=== PATIENT | male | born 1935 | race Caucasian/White ===

== ENCOUNTER 2017-02-14 05:20 | Inpatient (IN) | payer OTHER, MEDICARE ==
[~2017-02-14] VITALS: Ht 167.6 cm; Wt 94.3 kg
--- NOTE | 2017-02-14 05:39 | ED GENERAL ADULT ---
History of Present Illness General Chief Complaint: General Adult Stated Complaint: "PER EMS FOUND UNRESPONSIVE" Source: patient Exam Limitations: no limitations Vital Signs & Intake/Output Vital Signs & Intake/Output Vital Signs Date Time Temp Pulse Resp B/P B/P Pulse O2 O2 Flow FiO2 Mean Ox Delivery Rate 02/14 1121 98.4 63 18 111/57 95 BIPAP 35% 02/14 1115 97 02/14 0948 98.4 63 18 134/43 96 BIPAP 35% 02/14 0914 67 97 02/14 0830 99.0 70 16 93/45 95 Nasal 3.5L Cannula 02/14 0621 101.9 02/14 0541 94 Nasal 4.0L Cannula 02/14 0536 100.6 86 14 160/100 96 Room Air 02/14/17 5:30 AM 82-year-old man presents to the emergency department for altered mental status. According to the patient's they were staying at a hotel from [place] he has a history of chronic back pain and tends to overdo his pain medication. He also has a history of COPD. He was lethargic and had a slow respiratory rate. This was called and Narcan was given. Now he is awake and alert, he had bilateral expiratory wheezes and albuterol was given in the field. The onset of the symptoms was abrupt, the duration was just this evening the severity was significant as his symptoms required him to come to the emergency department for care. (SANTA MARTINEZ DO) Allergies Coded Allergies: No Known Allergies (02/14/17) Triage Nurses Notes Reviewed? yes HPI: IVF, CXR, HEAD CT, EKG (SANTA MARTINEZ DO) Past History Travel History Traveled to [place] past 21 day No Medical History Any Pertinent Medical History? see below for history Respiratory: COPD Surgical History Surgical History: non-contributory Family History Hx Contributory? No (SANTA MARTINEZ DO) Review of Systems Review of Systems Constitutional: Reports: no symptoms. EENTM: Reports: no symptoms. Respiratory: Reports: cough, short of breath. Cardiovascular: Denies: chest pain. GI: Denies: abdominal pain. Genitourinary: Reports: no symptoms. Musculoskeletal: Reports: no symptoms. Skin: Reports: no symptoms. Neurological/Psychological: Reports: confusion. Hematologic/Endocrine: Reports: no symptoms. Immunologic/Allergic: Reports: no symptoms. (SANTA MARTINEZ DO) Physical Exam Physical Exam General Appearance: alert, awake, anxious, moderate distress Head: atraumatic, normal appearance Eyes: Bilateral: normal appearance, PERRL, EOMI. Ears, Nose, Throat: normal pharynx, normal ENT inspection Neck: normal inspection, supple Respiratory: normal breath sounds, chest non-tender, accessory muscle use, rhonchi Cardiovascular: regular rate/rhythm Peripheral Pulses: 4+ radial (R), 4+ radial (L) Gastrointestinal: non-tender Back: decreased range of motion Extremities: pedal edema Neurologic/Psych: no motor/sensory deficits, alert Skin: intact, normal color, warm/dry Core Measures ACS in differential dx? No CVA/TIA Diagnosis: No Severe Sepsis Present: No Septic Shock Present: No (SANTA MARTINEZ DO) Progress Differential Diagnoses I considered the following diagnoses in my evaluation of the patient: Pneumonia , COPD, CVA, TIA, aspiration pneumonia, opiate overdose, alcohol intoxication, polydrug overdose Plan of Care: Orders Procedure Date/time Status ARTERIAL BLOOD GAS (GEN) 02/14 1046 Active Admit to inpatient 02/14 1013 Active BIPAP 02/14 0905 Complete LACTIC ACID 02/14 0842 Complete ARTERIAL BLOOD GAS (GEN) 02/14 0816 Complete URINALYSIS 02/14 0816 Complete EKG 02/14 0603 Active LOWER RESPIRATORY CULTURE 02/14 0550 Active BLOOD CULTURE 02/14 0542 Active TROPONIN LEVEL 02/14 0542 Complete LACTIC ACID 02/14 0542 Complete COMPREHENSIVE METABOLIC PANEL 02/14 0542 Complete CBC WITHOUT DIFFERENTIAL 02/14 0542 Complete Current Medications Sig/Caleb Start time Last Medication Dose Stop Time Status Admin Naloxone HCl 0.8 MG ONCE ONE 02/14 1145 AC 02/14 (Narcan) 02/14 1146 1137 Naloxone HCl 20 MG ONCE ONE 02/14 0600 CAN (Narcan Drip High 02/14 0601 Dose) Sodium Chloride 500 ML (Normal Saline 0.9%) Laboratory Tests 02/14/17 1115: pH 7.28 *L, pCO2 59 H, pO2 53 L, HCO3 27, ABG O2 Sat (Measured) 85.0 L, P-50 (Temp Corrected) YES, Carboxyhemoglobin 0.3 L, O2 Concentration % 35%, Temperature 98.4, Respiration Rate 26, O2 Delivery Method BIPAP, Vent Mode ST, Expiratory Pressure 4, Inspiratory Pressure 16, Phlebotomy Draw Site RIGHT RADIAL 02/14/17 0909: Urine Color YEL, Urine Clarity CLEAR, Urine pH 5.5, Ur Specific Dairy 1.020, Urine Protein NEG, Urine Ketones NEG, Urine Nitrite NEG, Urine Bilirubin NEG, Urine Urobilinogen 0.2, Ur Leukocyte Esterase NEG, Ur Microscopic EXAM NOT REQUIRED, Urine Hemoglobin NEG, Urine Glucose NEG 02/14/17 0842: Lactic Acid 1.9 02/14/17 0840: pH 7.23 *L, pCO2 64 *H, pO2 92, HCO3 25, ABG O2 Sat (Measured) 95.0 L, P-50 ( Temp Corrected) YES, Carboxyhemoglobin 0.3 L, O2 Concentration % 4L, Temperature 101.9 H, O2 Delivery Method NC, Phlebotomy Draw Site RIGHT RADIAL 02/14/17 0840: pH Pending, pCO2 Pending, pO2 Pending, HCO3 Pending, ABG O2 Sat (Measured) Pending, P-50 (Temp Corrected) Pending, Carboxyhemoglobin Pending, O2 Concentration % Pending, Temperature Pending, O2 Delivery Method Pending, Phlebotomy Draw Site Pending 02/14/17 0549: Anion Gap 8, Estimated GFR 53 L, BUN/Creatinine Ratio 20.0, Glucose 113 H, Lactic Acid 2.2 H, Calcium 8.5, Total Bilirubin 0.5, AST 45, ALT 47, Alkaline Phosphatase 88, Troponin I 0.02, Total Protein 6.9, Albumin 3.9, Globulin 3.0, Albumin/Globulin Ratio 1.3, CBC w Diff NO MAN DIFF REQ, RBC 3.75 L, MCV 93.8, MCH 30.2, RDW 15.1 H, MPV 11.1 H, Gran % 65.3, Lymphocytes % 24.8, Monocytes % 7.4, Eosinophils % 2.1, Basophils % 0.4, Absolute Granulocytes 5.8, Absolute Lymphocytes 2.2, Absolute Monocytes 0.7 H, Absolute Eosinophils 0.2, Absolute Basophils 0, PUBS MCHC 32.2 L Microbiology 02/14 06 LOWER RESP: Respiratory Culture - RES 02/14 06 LOWER RESP: Gram Stain - RES 02/14 06 BLOOD: Blood Culture - RECD 07/16 0550 BLOOD: Blood Culture - RECD 02/14/17 The patient was placed on oxygen and a case monitor. Labs were sent. (SANTA MARTINEZ DO) Initial ED EKG: PENDING (SANTA MARTINEZ DO) Diagnostic Imaging: Discussed w/RAD: Radiology Read, CT Scan. Radiology Impression: PATIENT: CHAO TURNER PRESENT AGE: 82 PATIENT ACCOUNT NO: [id number] : 37 LOCATION: ER ORDERING PHYSICIAN: SANTA MARTINEZ DO SERVICE DATE: 02/14/17 EXAM TYPE: CAT - CT HEAD WO IV CONTRAST EXAMINATION: CT HEAD WITHOUT CONTRAST CLINICAL INFORMATION: Cerebral vascular accident COMPARISON: None TECHNIQUE: Contiguous axial imaging was performed from the skull base to vertex without intravenous administration of contrast. DLP: 618.47 mGy-cm FINDINGS: There is no evidence of acute intracranial hemorrhage or territorial infarction. No abnormal mass effect or midline shift is seen. Gilliland to white matter differentiation is well preserved. No extra-axial fluid collections are identified. The ventricles are normal in size. Mild cerebral volume loss is compatible with age. Mild low- attenuation is seen in the periventricular white matter extending into the centrum semiovale in keeping with mild small vessel ischemic change. Mild calcifications are seen in the internal carotid arteries at the carotid siphon. The osseous structures and soft tissues are normal. The mastoid air cells and visualized portions of the paranasal sinuses are well aerated. Soft tissue density in the right and left naris may reflect nasal polyps, correlate clinically. IMPRESSION: No acute intracranial pathology. Mild small vessel ischemic change. DICTATED BY: CASIE KELLEY MD DATE/TIME DICTATED:02/14/17709 LINK CUTTER:LINDA DATE/TIME TRANSCRIBED:02/14/17709 CONFIDENTIAL, DO NOT COPY WITHOUT APPROPRIATE AUTHORIZATION. <Electronically signed in Other Vendor System> SIGNED BY: CASIE KELLEY MD 02/14/17718 CXR Impression: PATIENT: CHAO TURNER PRESENT AGE: 82 PATIENT ACCOUNT NO: [id number] : 37 LOCATION: [facility] ORDERING PHYSICIAN: SANTA MARTINEZ DO SERVICE DATE: 02/14/17 EXAM TYPE: RAD - XRY- PORTABLE CHEST XRAY EXAMINATION: XR PORTABLE CHEST CLINICAL INFORMATION: Altered mental status, shortness of breath, rule out aspiration COMPARISON: Chest x-ray report [facility] 11/07/2014. TECHNIQUE: Portable AP 90 degrees upright view of the chest was obtained. FINDINGS: A nerve stimulator device overlies the mediastinum. The cardiac silhouette is mildly enlarged. The lung volumes are decreased with minimal patchy left retrocardiac opacity and trace left pleural effusion. There is vascular congestion without interstitial edema. IMPRESSION: The cardiac silhouette is mildly enlarged with vascular congestion. No interstitial edema. Minimal patchy opacity at the left base with a trace pleural effusion is nonspecific for atelectasis, secretions/aspiration or early infection. DICTATED BY: CASIE KELLEY MD DATE/TIME DICTATED:02/14/17714 LINK CUTTER:LINDA DATE/TIME TRANSCRIBED:02/14/17714 CONFIDENTIAL, DO NOT COPY WITHOUT APPROPRIATE AUTHORIZATION. <Electronically signed in Other Vendor System> SIGNED BY: CASIE KELLEY MD 02/14/17 0721 Comments: 02/14/2017 8:14:21 AM patient signed out to me by Dr. Martinez at shift chemical cell changer. 02/14/2017 8:51:15 AM 7.23/64/92/25 95% BiPAP to be initiated, respiratory therapist aware. 02/14/2017 11:31:14 AM REPEAT 7.28/59/53/27 85% (PT DIPPED TO MID 80'S THEN IMPROVED AGAIN). Narcan ordered. Dr. Solomon updated. Patient to be admitted to telemetry. (LEIGHA SULLIVAN,SANTA Graves) Departure Departure Disposition: STILL A PATIENT Condition: Stable Departure Forms: Customer Survey General Discharge Information Comments 02/14/17 7 am The patient spiked a fever. EKG shows left bundle-branch block. IV Tylenol and antibiotics have been given The patient was signed out to Dr. Terry at 7 AM workup is pending. (SANTA MARTINEZ DO) Departure Clinical Impression Primary Impression: Hypercapnic respiratory failure Qualifiers: Chronicity: acute Qualified Code: J96.02 - Acute respiratory failure with hypercapnia Secondary Impressions: Anemia Qualifiers: Anemia type: unspecified type Qualified Code: D64.9 - Anemia, unspecified Opiate overdose Renal insufficiency Admission Note Spoke With: JENNIFER SULLIVAN,[place] Documentation of Exam: Documentation of any treatments & extenuating circumstances including Concerns Regarding Discharge (functional status, medication knowledge or non-compliance, living conditions, etc.) that warrant an admission rather than observation: Patient currently has hypercapnic respiratory failure complicated by chronic narcotic use secondary to chronic back pain. The patient is at high risk of respiratory failure and mortality. He now requires close clinical monitoring with continuous pulse oximetry and BiPAP TO augment ventilation and oxygenation. The patient's hypercapnia has made him lethargic, and this disqualifies him as a candidate for outpatient management. He would not be able to comply with outpatient treatment and would almost certainly return in worse clinical condition. His medications should be reevaluated and adjusted given his propensity to hypercapnia. Pulmonary consultation should be considered. I feel he'll require a multiple day hospitalization given his age and his comorbidities. (LEIHGA SULLIVAN,SANTA Graves) Critical Care Note Critical Care Note Critical Care Time: 30-74 min (SANTA MARTINEZ DO)
--- NOTE | 2017-02-14 05:41 | NUR ---
82YO MALE TO RM 6 VIA AMB [place] WITH DECREASED LOC. REPORTS PT SNARLING, MOANING IN HIS SLEEP AND SHE WAS UNABLE TO WAKE HIM. SHE ALSO STATES "PT IS ON PAIN MEDS FOR CHRONIC BACK PAIN AND HAS TAKEN TOO MANY IN THE PAST AND NEEDED MEDICINE BY APPLE TURNER TO WAKE HIM UP"
--- NOTE | 2017-02-14 05:42 | NUR ---
DR MARTINEZ AT BEDSIDE.
--- NOTE | 2017-02-14 05:45 | NUR ---
PLACED ON 4L NASAL O2 RA SAT AFTER RESP TX = 88 RR DECREASED. ONLY AROUSABLE TO LOUD VERBAL STIM. DR MARTINEZ AWARE--NARCAN 0.4 GIVEN IV
--- NOTE | 2017-02-14 05:57 | NUR ---
LABS SENT (1BLUE,1GRAY,1LAV,1SST)
--- NOTE | 2017-02-14 06:04 | NUR ---
BLOOD CULTURES OBTAINED VIA BUTTERFLY FROM 2 DIFFERENT SITES AND SENT TO LAB BY THIS RN.
[2017-02-14 06:08] LABS: ABSOLUTE BASOPHIL COUNT 0 /CUMM (0.0-0.2); ABSOLUTE EOSINOPHIL COUNT 0.2 /CUMM (0.0-0.7); ABSOLUTE GRANULOCYTE CT 5.8 /CUMM (1.4-6.5); ABSOLUTE LYMPH COUNT 2.2 /CUMM (1.2-3.4); ABSOLUTE MONOCYTE COUNT 0.7 /CUMM (0.10-0.60); BASOPHIL % 0.4 % (0.0-2.0); EOSINOPHIL % 2.1 % (0-5); GRANULOCYTE % 65.3 % (42.2-75.2); HEMATOCRIT 35.2 % (42-52); MEAN CORPUSCULAR HGB 30.2 PG (27.0-31.0); MEAN CORPUSCULAR HGB CONC 32.2 G/DL (33.0-37.0); MEAN CORPUSCULAR VOLUME 93.8 FL (80.0-94.0); MEAN PLATELET VOLUME 11.1 FL (7.4-10.4); PLATELET COUNT 167 /CUMM (130-400); RBC DISTRIBUTION WIDTH 15.1 % (11.5-14.5); RED BLOOD CELL CT 3.75 /CUMM (4.70-6.10); WHITE BLOOD CELL COUNT 8.9 /CUMM (4.8-10.8)
--- NOTE | 2017-02-14 06:23 | NUR ---
T = 101.9T DR MARTINEZ AWARE IV ADITYA MARTINES
--- NOTE | 2017-02-14 06:25 | NUR ---
TO CT VIA STRETCHER
--- NOTE | 2017-02-14 06:28 | NUR ---
CRITICAL TEST RESULTS [id number] CHAO TURNER 82 M TESTS AND RESULTS: LACTIC 2.2 Results received and read back by: INDY JOHNSON Results received date and time: 02/14/17 0628 The following provider was notified of the results, and read the results back: Notified date and time: 02/14/17 at 0628
--- NOTE | 2017-02-14 06:56 | NUR ---
RETD FROM CT AND XR
--- NOTE | 2017-02-14 07:15 | NUR ---
ASSUMED CARE OF PT AT THIS TIME. PT SLEEPING ON STRETCHER, REG RESP RATE NOTED. WILL CTM
--- NOTE | 2017-02-14 07:19 | CT SCAN REPORT ---
EXAMINATION: CT HEAD WITHOUT CONTRAST CLINICAL INFORMATION: Cerebral vascular accident COMPARISON: None TECHNIQUE: Contiguous axial imaging was performed from the skull base to vertex without intravenous administration of contrast. DLP: 618.47 mGy-cm FINDINGS: There is no evidence of acute intracranial hemorrhage or territorial infarction. No abnormal mass effect or midline shift is seen. Gilliland to white matter differentiation is well preserved. No extra-axial fluid collections are identified. The ventricles are normal in size. Mild cerebral volume loss is compatible with age. Mild low-attenuation is seen in the periventricular white matter extending into the centrum semiovale in keeping with mild small vessel ischemic change. Mild calcifications are seen in the internal carotid arteries at the carotid siphon. The osseous structures and soft tissues are normal. The mastoid air cells and visualized portions of the paranasal sinuses are well aerated. Soft tissue density in the right and left naris may reflect nasal polyps, correlate clinically. IMPRESSION: No acute intracranial pathology. Mild small vessel ischemic change.
--- NOTE | 2017-02-14 07:21 | RADIOLOGY REPORT ---
EXAMINATION: XR PORTABLE CHEST CLINICAL INFORMATION: Altered mental status, shortness of breath, rule out aspiration COMPARISON: Chest x-ray report [facility] 11/07/2014. TECHNIQUE: Portable AP 90 degrees upright view of the chest was obtained. FINDINGS: A nerve stimulator device overlies the mediastinum. The cardiac silhouette is mildly enlarged. The lung volumes are decreased with minimal patchy left retrocardiac opacity and trace left pleural effusion. There is vascular congestion without interstitial edema. IMPRESSION: The cardiac silhouette is mildly enlarged with vascular congestion. No interstitial edema. Minimal patchy opacity at the left base with a trace pleural effusion is nonspecific for atelectasis, secretions/aspiration or early infection.
--- NOTE | 2017-02-14 08:01 | NUR ---
PT HAS 2 IV'S PLACED BY EMS THIS AM AROUND 0600AM. (#18 TO L HAND & #18 TO R HAND) PT REFUISNG ANOTHER IV LINE TO BE STARTED AT THIS TIME. BOTH IV'S FLUSHED AND PATENT.
--- NOTE | 2017-02-14 08:39 | NUR ---
PT SLEEPY AT THIS TIME BUT EASILY AROUSABLE. 500CC BOLUS INFUSING PER ORDER, RESP AT BEDSIDE FOR ABG. REMAINS AT BEDSIDE.
--- NOTE | 2017-02-14 08:41 | NUR ---
PT REQUESTING TO TRY TO VOID IN [facility] FOR SAMPLE. URINAL PLACED BETWEEN LEGS AT THIS TIME PER PT REQUEST.
--- NOTE | 2017-02-14 08:44 | NUR ---
REPEAT LACTIC ACID DRAWN AND SENT TO LAB BY THIS MST
--- NOTE | 2017-02-14 09:16 | NUR ---
PT UNABLE TO GIVE URINE SAMPLE. PT STRAIGHT CATH'D AT THIS TIME FOR SPECIMEN. OUTPUT 600CC CLEAR YELLOW URINE, SPECIMEN SENT TO LAB. PT REMAINS SLEEPY BUT EASILY AROUSABLE. PT PLACED ON BIPAP AT THIS TIME BY RESP THERAPIST.
--- NOTE | 2017-02-14 09:48 | NUR ---
PT REMAINS ON BIPAP AT THIS TIME, SATS 94-96%. REMAINS NSR ON MONITOR. REMAINS AT BEDSIDE, PT AND AWARE OF ADMISSION PLAN. PT REMAINS DROWSY AT THIS TIME.
--- NOTE | 2017-02-14 10:18 | NUR ---
PT REPOSTIONED IN BED AT THIS TIME. AWARE WAITING ON BED ASSISGNEMT.
--- NOTE | 2017-02-14 11:11 | NUR ---
RESP AT BEDSIDE FOR REPEAT ABG
--- NOTE | 2017-02-14 11:38 | NUR ---
PT MEEDICATED WITH IV NARCAN PER ORDER AT THIS TIME. PT REMAINS DROWSY BUT EASILY AROUSABLE.
--- NOTE | 2017-02-14 11:51 | NUR ---
PT REPOSTIONED IN BED AT THIS TIME. REMAINS ON BIPAP, PT MORE AWAKE AFTER NARCAN ADMINISTRATION BUT REMAINS DROWSY
--- NOTE | 2017-02-14 12:08 | NUR ---
HOUSE STAFF AT BEDSIDE FOR EVAL AT THIS TIME
--- NOTE | 2017-02-14 12:24 | History & Physical ---
CASSANDRA STALEY 02/14/17 1218: General Information and HPI MD Statement: I have seen and personally examined CHAO TURNER and documented this H&P. The patient is a 82 year old M who presented with a patient stated chief complaint of [acute hypoxic respiratory failure]. Source of Information: old records Exam Limitations: unable to give history, clinical condition History of Present Illness: Patient is a 82-year-old male with past medical history of COPD, chronic back pain, hypertension, gout who was brought in the ED today for altered mental status. Most of the history is obtained from the ER record. I tried to contact patient' s multiple times but received no response. As per the records, patient's and his was staying at a hotel in [place]. He has history of chronic back pain and apparently overdid his pain medications this morning. He was lethargic and had a slow respiratory rate. This prompted his to call EMS who gave the patient Narcan with improvement of his mentation. On arriving in the ED, the patient was awake and alert however had expiratory wheezing. He was given 1 dose of IV ceftriaxone and azithromycin, Narcan(0.4 mg and 0.8 mg) and TRC nebs. Patient has never been in the hospital before and no records are available in the computer. Vitals at admission temperature 100.6, pulse 86, respiration 14, blood pressure 160/100 Pertinent labs showed H&H of 11.3 /35.2, no white count, creatinine 1.3(baseline unknown), lactic acidosis of 2.2(improved to 1.9 with IV fluid), normal LFTs, troponin 0.02, benign UA, U tox not done AB:51 AM 7.23/64/92/25 95% BiPAP was initiated 11:31 AM REPEAT 7.28/59/53/27 85% (PT DIPPED TO MID 80'S THEN IMPROVED AGAIN) Chest x-ray: Mild patchy opacity in the left base with trace pleural effusion? Aspiration/atelectasis Enlarged large cardiac silhouette with vascular congestion Head CT negative for any acute changes Allergies/Medications Allergies: Coded Allergies: No Known Allergies (02/14/17) Past History Travel History Traveled to [place] past 21 day No Medical History Cardiovascular: hypertension, hyperlipidemia Respiratory: COPD Musculoskeletal: disk herniation Endocrine: diabetes Surgical History Surgical History: non-contributory Review of Systems Review of Systems Constitutional: Reports: malaise, weakness. EENTM: Reports: no symptoms. Cardiovascular: Reports: no symptoms. Respiratory: Reports: short of breath, wheezing. GI: Reports: no symptoms. Genitourinary: Reports: no symptoms. Exam & Diagnostic Data Last 24 Hrs of Vital Signs/I&O Vital Signs Date Time Temp Pulse Resp B/P B/P Pulse O2 O2 Flow FiO2 Mean Ox Delivery Rate 02/14 1150 64 150/65 02/14 1121 98.4 63 18 111/57 95 BIPAP 35% 02/14 1115 97 02/14 0948 98.4 63 18 134/43 96 BIPAP 35% 02/14 0914 67 97 02/14 0830 99.0 70 16 93/45 95 Nasal 3.5L Cannula 02/14 0621 101.9 02/14 0541 94 Nasal 4.0L Cannula 02/14 0536 100.6 86 14 160/100 96 Room Air Intake & Output 02/14 1600 02/14 0800 02/14 0000 Intake Total 500 Output Total 600 Balance -100 Intake, IV 500 Output, Urine 600 Patient 113.398 kg Weight Physical Exam General Appearance DROWSY ON BIPAP Skin No Significant Lesion Skin Temp/Moisture Exam: Warm/Dry Sepsis Skin Exam (color): Normal for Ethnicity HEENT Atraumatic, PERRLA, BIPAP Neck No JVD Lymphatic Cervical nl Cardiovascular Regular Rate, Normal S1, Normal S2, SYSTOLIC MURMUR Lungs BILATERAL WHEEZES Abdomen Normal Bowel Sounds, Soft Extremities No Clubbing, No Cyanosis, No Edema Vascular Normal Pulses Last 24 Hrs of Labs/Dhruv: Laboratory Tests 02/14/17 1115: pH 7.28 *L, pCO2 59 H, pO2 53 L, HCO3 27, ABG O2 Sat (Measured) 85.0 L, P-50 (Temp Corrected) YES, Carboxyhemoglobin 0.3 L, O2 Concentration % 35%, Temperature 98.4, Respiration Rate 26, O2 Delivery Method BIPAP, Vent Mode ST, Expiratory Pressure 4, Inspiratory Pressure 16, Phlebotomy Draw Site RIGHT RADIAL 02/14/17 0909: Urine Color YEL, Urine Clarity CLEAR, Urine pH 5.5, Ur Specific [place] 1.020, Urine Protein NEG, Urine Ketones NEG, Urine Nitrite NEG, Urine Bilirubin NEG, Urine Urobilinogen 0.2, Ur Leukocyte Esterase NEG, Ur Microscopic EXAM NOT REQUIRED, Urine Hemoglobin NEG, Urine Glucose NEG 02/14/17 0842: Lactic Acid 1.9 02/14/17 0840: pH 7.23 *L, pCO2 64 *H, pO2 92, HCO3 25, ABG O2 Sat (Measured) 95.0 L, P-50 ( Temp Corrected) YES, Carboxyhemoglobin 0.3 L, O2 Concentration % 4L, Temperature 101.9 H, O2 Delivery Method NC, Phlebotomy Draw Site RIGHT RADIAL 02/14/17 0840: pH Pending, pCO2 Pending, pO2 Pending, HCO3 Pending, ABG O2 Sat (Measured) Pending, P-50 (Temp Corrected) Pending, Carboxyhemoglobin Pending, O2 Concentration % Pending, Temperature Pending, O2 Delivery Method Pending, Phlebotomy Draw Site Pending 02/14/17 0549: Anion Gap 8, Estimated GFR 53 L, BUN/Creatinine Ratio 20.0, Glucose 113 H, Lactic Acid 2.2 H, Calcium 8.5, Total Bilirubin 0.5, AST 45, ALT 47, Alkaline Phosphatase 88, Troponin I 0.02, Total Protein 6.9, Albumin 3.9, Globulin 3.0, Albumin/Globulin Ratio 1.3, CBC w Diff NO MAN DIFF REQ, RBC 3.75 L, MCV 93.8, MCH 30.2, RDW 15.1 H, MPV 11.1 H, Gran % 65.3, Lymphocytes % 24.8, Monocytes % 7.4, Eosinophils % 2.1, Basophils % 0.4, Absolute Granulocytes 5.8, Absolute Lymphocytes 2.2, Absolute Monocytes 0.7 H, Absolute Eosinophils 0.2, Absolute Basophils 0, PUBS MCHC 32.2 L Microbiology 02/14 0605 LOWER RESP: Respiratory Culture - RES 02/14 605 LOWER RESP: Gram Stain - RES 02/14 06 BLOOD: Blood Culture - RECD 02/14 05 BLOOD: Blood Culture - RECD Assessment/Plan Assessment: Patient is a 82-year-old male with past medical history of COPD, chronic back pain, hypertension, gout who was brought in the ED today for altered mental status. Vitals at admission temperature 100.6, pulse 86, respiration 14, blood pressure 160/100 Pertinent labs showed H&H of 11.3 /35.2, no white count, creatinine 1.3(baseline unknown), lactic acidosis of 2.2(improved to 1.9 with IV fluid), normal LFTs, troponin 0.02, benign UA, U tox not done EKG : Afib, LBBB( new?, no previous ekg for comparison) AB:51 AM 7.23/64/92/25 95% BiPAP was initiated 11:31 AM REPEAT 7.28/59/53/27 85% (PT DIPPED TO MID 80'S THEN IMPROVED AGAIN) Chest x-ray: Mild patchy opacity in the left base with trace pleural effusion? Aspiration/atelectasis Enlarged large cardiac silhouette with vascular congestion Head CT negative for any acute changes Assessment and plan #1 Acute hypoxic hypercarbic respiratory failure likely secondary to COPD exacerbation and opiate overdose . Some evidence of pulmonary edema on chest x -ray. Was administered Narcan in ED -Admit patient to telemetry -BiPAP as needed. Maintain oxygen saturations above 92% -TRC nebs [id number] -IV salmeterol 40 every 8 hours -Repeat ABG later today -Strict ins and outs and will check proBNP level -We will hold off Lasix for now -Received IV ceftriaxone and azithromycin in the ED. We will continue Unasyn questionable aspiration pneumonia -Pancultures ordered -Pulmonary consult in am -Try and get records from patient's previous pulmonary docor. #2 ?Aspiration pneumonia -Presence of left lower lobe opacity in the chest x-ray -Patient received IV cephalexin and azithromycin in the ED. We will continue IV Unasyn for now -Nothing by mouth pending swallow eval -Pancultures -Gentle hydration with IV normal saline at 50 mL 1 bag #3 Acute on chronic CHF: Evidence of vascular congestion on chest x-ray. No previous echocardiogram on file -3 sets of troponin and EKG to rule out ACS -ProBNP added to the previous labs -Echocardiogram will be ordered -Strict ins and outs and weight checks -Cardiology consult in a.m. #4 Opiate overdose: Received Narcan in field and in the ER -Nothing by mouth for now until formal swallow eval -Avoid opiates -U tox ordered #5 Acute kidney injury: No baseline creatinine available -Gentle hydration with IV normal saline at 50 mL an hour into 1 bag -Repeat BeP in a.m. -Avoid nephrotoxins -Try to obtain records from patient PCP #6 hypertension and hyperlipidemia -We will hold home dose of losartan because of SID -We will try and get med list confirmed in a.m. Nothing by mouth to a formal swallow eval DVT prophylaxis subcutaneous heparin Full code(please confirm CODE STATUS with in a.m.) try to call her several times with no response. As Ranked By This Provider Problem List: 1. Hypercapnic respiratory failure Qualifiers Chronicity: acute Qualified Code: J96.02 - Acute respiratory failure with hypercapnia 2. Opiate overdose 3. Renal insufficiency 4. Anemia Qualifiers Anemia type: unspecified type Qualified Code: D64.9 - Anemia, unspecified Core Measures/Miscellaneous Acute Coronary Syndrome ACS Diagnosis: No Cerebrovascular Accident CVA/TIA Diagnosis: No Congestive Heart Failure CHF Diagnosis: No VTE (View Protocol) VTE Risk Factors: Age > 40, Obesity [facility] prophylaxis d/t: No contraindications No VTE Pharm Prophylaxis d/t: No contraindications VTE Diagnosis: No VTE Type: NONE VTE Confirmed by (Test): NONE Sepsis (View Protocol) Severe Sepsis Present: No Septic Shock Septic Shock Present: No Miscellaneous Documentation Attending Case Discussed With: LAMONT RODRIGUEZ MD Primary Care Physician: GRETCHEN BOLDEN MD Patient sees these Specialists NONE Level of Patient Care: Telemetry LAMONT RODRIGUEZ MD 02/14/17 1637: Attending MD Review Statement Attending Statement Attending Statement: examined this patient, discuss w/resident/PA/WELDING MACHINE OPERATOR THERMIT, agreed w/resident/PA/WELDING MACHINE OPERATOR THERMIT, reviewed EMR data (avail), discussed with nursing, reviewed images, amended to note Attending Assessment/Plan: 82 yo M with pmh sig for COPD, chronic back pain, hypertension, gout, p/w unresponsiveness. Hx is limited. Apparently patient might have overdosed on his narcotics according to ER physician,s report. He was brought in by ambulance from a hotel in [facility] as he was found unresponsive. By the patient we saw the patient, he was wearing BIPAP and was still drowsy and not able to provide much hx. patient was hypercarbic and hypoxic. He required BiPAP. Repeat ABG did show some hypoxia. When I asked the patient he denied any chest pain. His EKG did show some left bundle branch and Dr. Terry from ER was able to give EKG from [facility] and he reported that this EKG is not changed from the previous one. Vital Signs Date Time Temp Pulse Resp B/P B/P Pulse O2 O2 Flow FiO2 Mean Ox Delivery Rate 02/14 1603 92 Nasal 3.0L Cannula 02/14 1556 98.2 69 20 160/78 98 BIPAP 4.0L 02/14 1500 97 02/14 1303 98.6 62 18 128/60 94 BIPAP 35% 02/14 1150 64 150/65 02/14 1121 98.4 63 18 111/57 95 BIPAP 35% 02/14 1115 97 02/14 0948 98.4 63 18 134/43 96 BIPAP 35% 02/14 0914 67 97 02/14 0830 99.0 70 16 93/45 95 Nasal 3.5L Cannula 02/14 0621 101.9 02/14 0541 94 Nasal 4.0L Cannula 02/14 0536 100.6 86 14 160/100 96 Room Air on exam; semi drwosy, wearing BIPAP. cv; s1,s2, rrr resp; exp wheeze. abd; soft, nt, bs+ ext; no edema. Laboratory Tests 02/14 02/14 02/14 02/14 1450 1300 1247 1115 Blood Gas pH (7.35 - 7.45 PH) 7.33 L 7.28 *L pCO2 (35 - 45 TORR) 50 H 59 H pO2 (80 - 100 TORR) 65 L 53 L HCO3 (21 - 28 MEQ/L) 25 27 ABG O2 Sat (Measured) (>96.0 %) 92.0 L 85.0 L P-50 (Temp Corrected) NO YES Carboxyhemoglobin (1.5 - 5.0 %) 0.6 L 0.3 L O2 Concentration % 35% 35% Temperature (97.0 - 100.0 FARH) 98.6 98.4 Respiration Rate (BPM) 20 26 O2 Delivery Method BIPAP BIPAP Vent Mode ST ST Expiratory Pressure (CM H2O P) 26 4 Inspiratory Pressure (CM H2O P) 4 16 Chemistry Troponin I (<0.11 ng/ml) 0.02 Miscellaneous Phlebotomy Draw Site RIGHT RADIAL RIGHT RADIAL Toxicology Methadone Screen Cancelled Barbiturate Screen Cancelled Ur Phencyclidine Scrn Cancelled Amphetamines Screen Cancelled U Benzodiazepines Scrn Cancelled Urine Cocaine Screen Cancelled Urine Cannabis Screen Cancelled 02/14 02/14 02/14 0909 0842 0840 Blood Gas pH (7.35 - 7.45 PH) 7.23 *L pCO2 (35 - 45 TORR) 64 *H pO2 (80 - 100 TORR) 92 HCO3 (21 - 28 MEQ/L) 25 ABG O2 Sat (Measured) (>96.0 %) 95.0 L P-50 (Temp Corrected) YES Carboxyhemoglobin (1.5 - 5.0 %) 0.3 L O2 Concentration % 4L Temperature (97.0 - 100.0 FARH) 101.9 H O2 Delivery Method NC Chemistry Lactic Acid (0.7 - 2.1 mmol/L) 1.9 Miscellaneous Phlebotomy Draw Site RIGHT RADIAL Toxicology Urine Opiates Screen (>2000 NG/ML) 973.00 Methadone Screen (>300 NG/ML) 56 Barbiturate Screen (>200 NG/ML) < 60 Ur Phencyclidine Scrn (>25 NG/ML) < 6.00 Amphetamines Screen (>1000 NG/ML) < 100 U Benzodiazepines Scrn (>200 NG/ML) < 85 Urine Cocaine Screen (>300 NG/ML) < 50 Urine Cannabis Screen (>50 NG/ML) < 5.00 Urines Urine Color (YEL,AMB,STR) YEL Urine Clarity (CLEAR) CLEAR Urine pH (5.0 - 8.0) 5.5 Ur Specific [place] (1.001 - 1.035) 1.020 Urine Protein (NEG,<30 MG/DL) NEG Urine Ketones (NEG) NEG Urine Nitrite (NEG) NEG Urine Bilirubin (NEG) NEG Urine Urobilinogen (0.1 - 1.0 EU/dl) 0.2 Ur Leukocyte Esterase (NEG) NEG Ur Microscopic EXAM NOT REQUIRED Urine Hemoglobin (NEG) NEG Urine Glucose (N MG/DL) NEG 02/14 02/14 0840 0549 Blood Gas pH Pending pCO2 Pending pO2 Pending HCO3 Pending ABG O2 Sat (Measured) Pending P-50 (Temp Corrected) Pending Carboxyhemoglobin Pending O2 Concentration % Pending Temperature Pending O2 Delivery Method Pending Chemistry Sodium (137 - 145 mmol/L) 138 Potassium (3.5 - 5.1 mmol/L) 5.1 Chloride (98 - 107 mmol/L) 102 Carbon Dioxide (22 - 30 mmol/L) 27 Anion Gap (5 - 16) 8 BUN (9 - 20 mg/dL) 26 H Creatinine (0.7 - 1.2 mg/dL) 1.3 H Estimated GFR (>60 ml/min) 53 L BUN/Creatinine Ratio (7 - 25 %) 20.0 Glucose (65 - 99 mg/dL) 113 H Lactic Acid (0.7 - 2.1 mmol/L) 2.2 H Calcium (8.4 - 10.2 mg/dL) 8.5 Total Bilirubin (0.2 - 1.3 mg/dL) 0.5 AST (17 - 59 U/L) 45 ALT (21 - 72 U/L) 47 Alkaline Phosphatase (< 127 U/L) 88 Troponin I (<0.11 ng/ml) 0.02 [id number] Pept (<125 pg/mL) 634 H Total Protein (6.3 - 8.2 g/dL) 6.9 Albumin (3.5 - 5.0 g/dL) 3.9 Globulin (1.9 - 4.2 gm/dL) 3.0 Albumin/Globulin Ratio (1.1 - 2.2 %) 1.3 Hematology CBC w Diff NO MAN DIFF REQ WBC (4.8 - 10.8 /CUMM) 8.9 RBC (4.70 - 6.10 /CUMM) 3.75 L Hgb (14.0 - 18.0 G/DL) 11.3 L Hct (42 - 52 %) 35.2 L MCV (80.0 - 94.0 FL) 93.8 MCH (27.0 - 31.0 PG) 30.2 RDW (11.5 - 14.5 %) 15.1 H Plt Count (130 - 400 /CUMM) 167 MPV (7.4 - 10.4 FL) 11.1 H Gran % (42.2 - 75.2 %) 65.3 Lymphocytes % (20.5 - 51.1 %) 24.8 Monocytes % (1.7 - 9.3 %) 7.4 Eosinophils % (0 - 5 %) 2.1 Basophils % (0.0 - 2.0 %) 0.4 Absolute Granulocytes (1.4 - 6.5 /CUMM) 5.8 Absolute Lymphocytes (1.2 - 3.4 /CUMM) 2.2 Absolute Monocytes (0.10 - 0.60 /CUMM) 0.7 H Absolute Eosinophils (0.0 - 0.7 /CUMM) 0.2 Absolute Basophils (0.0 - 0.2 /CUMM) 0 PUBS MCHC (33.0 - 37.0 G/DL) 32.2 L Miscellaneous Phlebotomy Draw Site Pending EKG shows left bundle branch block. A/P; 82 yo M with pmh sig for COPD, chronic back pain, hypertension, gout is admitted with acute hypoxic and hypercarbic respite Ray failure possibly narcotic overdose as urine tox did show some opiates. Patient is admitted to telemetry for continuous pulse ox monitoring. His blood gas will be monitored while on BiPAP. Please consult pulmonology. Currently patient will be treated with IV steroids. Patient also was febrile on presentation and is a question of possible aspiration pneumonia. Agree with Unasyn. Try to obtain sputum culture and adjust antibiotics. Patient should get some TRC nebs. Agree with IV steroids, monitor blood sugars. Patient has received Narcan 2. Watch for any withdrawal symptoms from opiates. DVT prophylaxis; hep sq. He will be considered as full code for now.
--- NOTE | 2017-02-14 13:01 | NUR ---
REPEAT TROPONIN DRAWN AND SENT TO LAB IV FLUIDS INFUISNG AT 50ML/HR AT THIS TIME PER ORDER PT REMAINS MORE ALERT AT THIS TIME, ORIENTED X3. PT AWARE HE IS "IN A HOSPITAL" PT NOT FROM THE AREA SO NEEDS REMINDER OF WHICH HOSPITAL BUT THEN STATES "OH YA THATS RIGHT, NAYA HEARD OF [facility] BEFORE" PT REMAINS NSR ON MONITOR, REPOSITONED IN BED AGAIN FOR COMOFRT. REMAINS ON BIPAP.
--- NOTE | 2017-02-14 13:05 | NUR ---
BED 182
--- NOTE | 2017-02-14 13:32 | NUR ---
PT MEDICATED WITH SOLUMEDROL AND HEPARIN PER ORDER AT THIS TIME. ECHO AT BEDSIDE
--- NOTE | 2017-02-14 13:44 | NUR ---
REPORT GIVEN TO FLOOR, ECHO REMAINS AT BEDSIDE.
--- NOTE | 2017-02-14 14:47 | NUR ---
RESP AT BEDIDE FOR REPEAT EKG
[2017-02-14 15:56] VITALS: BP 160/78
[2017-02-14 22:17] VITALS: BP 154/80
[2017-02-15 06:19] VITALS: BP 162/72
[2017-02-15 08:23] LABS: ABSOLUTE BASOPHIL COUNT 0 /CUMM (0.0-0.2); ABSOLUTE EOSINOPHIL COUNT 0 /CUMM (0.0-0.7); ABSOLUTE GRANULOCYTE CT 5.9 /CUMM (1.4-6.5); ABSOLUTE LYMPH COUNT 0.7 /CUMM (1.2-3.4); ABSOLUTE MONOCYTE COUNT 0.1 /CUMM (0.10-0.60); BASOPHIL % 0.2 % (0.0-2.0); EOSINOPHIL % 0 % (0-5); GRANULOCYTE % 87.5 % (42.2-75.2); HEMATOCRIT 37.6 % (42-52); MEAN CORPUSCULAR HGB 30.1 PG (27.0-31.0); MEAN CORPUSCULAR HGB CONC 32.5 G/DL (33.0-37.0); MEAN CORPUSCULAR VOLUME 92.8 FL (80.0-94.0); MEAN PLATELET VOLUME 11.7 FL (7.4-10.4); PLATELET COUNT 151 /CUMM (130-400); RBC DISTRIBUTION WIDTH 15.1 % (11.5-14.5); RED BLOOD CELL CT 4.05 /CUMM (4.70-6.10)
--- NOTE | 2017-02-15 09:01 | PN- Housestaff ---
CHERRY KLINE 02/15/17 0901: Subjective Follow-up For: Acute hypoxic respiratory failure Opiate overdose Possible Aspiration PNA SID Subjective: Patient has no complaints and requests to go home. No acute events overnight Review of Systems Constitutional: Reports: see HPI. Objective Last 24 Hrs of Vital Signs/I&O Vital Signs Date Time Temp Pulse Resp B/P B/P Pulse O2 O2 Flow FiO2 Mean Ox Delivery Rate 02/15 1118 98.2 72 18 156/74 92 Room Air 02/15 1116 72 156/74 02/15 0619 98.8 89 20 162/72 92 Room Air 02/14 2217 99.6 82 20 154/80 92 Nasal 3.0L Cannula 02/14 2149 94 Nasal 3.0L Cannula 02/14 2018 93 Nasal 3.0L Cannula 02/14 1603 92 Nasal 3.0L Cannula 02/14 1556 98.2 69 20 160/78 98 BIPAP 4.0L 02/14 1551 92 Nasal 3.0L Cannula 02/14 1500 97 Intake & Output 02/15 1600 02/15 0800 02/15 0000 Intake Total 540 Output Total Balance 540 Intake, IV 300 Intake, Oral 240 Patient 208 lb Weight Physical Exam General Appearance: Alert, Oriented X3, Cooperative, No Acute Distress HEENT: Atraumatic, PERRLA Neck: Supple, No JVD Cardiovascular: Normal S1, Normal S2, No Murmurs Lungs: Clear to Auscultation, Normal Air Movement Abdomen: Normal Bowel Sounds, Soft, No Tenderness Extremities: No Cyanosis, No Edema Current Medications: Current Medications Sig/Caleb Start time Last Medication Dose Route Stop Time Status Admin Acetaminophen 325 MG Q6 PRN 02/14 1230 DCD PO Acetaminophen 1,000 MG Q6P PRN 02/14 1215 DCD IV Ampicillin Sodium/ 1,500 MG Q6 02/14 1800 DCD 02/15 Sulbactam Sodium IV 0600 Sodium Chloride 100 ML Heparin Sodium 5,000 UNIT Q8 02/14 1400 DCD 02/15 (Porcine) SC 0600 Losartan Potassium 100 MG DAILY 02/15 1000 DCD 02/15 PO 1116 Methylprednisolone 40 MG Q8 02/14 1400 DCD 02/15 IV 0600 Sodium Chloride 1,000 ML Q20H 02/14 1245 DC 02/14 IV 02/15 0844 1301 Last 24 Hrs of Lab/Dhruv Results Last 24 Hrs of Labs/Mics: Laboratory Tests 02/15/17 0646: Anion Gap 12, Estimated GFR > 60, BUN/Creatinine Ratio 21.3, CBC w Diff NO MAN DIFF REQ, RBC 4.05 L, MCV 92.8, MCH 30.1, RDW 15.1 H, MPV 11.7 H, Gran % 87.5 H, Lymphocytes % 10.7 L, Monocytes % 1.6 L, Eosinophils % 0, Basophils % 0.2, Absolute Granulocytes 5.9, Absolute Lymphocytes 0.7 L, Absolute Monocytes 0.1 L, Absolute Eosinophils 0, Absolute Basophils 0, PUBS MCHC 32.5 L 02/14/17 2030: Urine Opiates Screen 259.00, Methadone Screen 53, Barbiturate Screen < 60, Ur Phencyclidine Scrn < 6.00, Amphetamines Screen < 100, U Benzodiazepines Scrn < 85, Urine Cocaine Screen < 50, Urine Cannabis Screen < 5.00 02/14/17 1915: Troponin I 0.02 02/14/17 1450: pH 7.33 L, pCO2 50 H, pO2 65 L, HCO3 25, ABG O2 Sat (Measured) 92.0 L, P-50 (Temp Corrected) NO, Carboxyhemoglobin 0.6 L, O2 Concentration % 35%, Temperature 98.6, Respiration Rate 20, O2 Delivery Method BIPAP, Vent Mode ST, Expiratory Pressure 26, Inspiratory Pressure 4, Phlebotomy Draw Site RIGHT RADIAL Orders ECHO Findings: CONCLUSIONS Moderate concentric left ventricular hypertrophy. Normal left ventricular ejection fraction visually estimated at >65 "pseudonormal" filling pattern of the left ventricle for age (stage 2 diastolic dysfunction). Mild to moderate left atrial dilatation. Mild thickening/calcification of the mitral valve leaflets. Moderate mitral annular calcification. Mild mitral regurgitation. Diffuse thickening of the aortic valve cusps with mildly reduced excursion. Very mild aortic stenosis is seen. Trace aortic regurgitation is seen. Right ventricular systolic pressure estimated to be elevated at 40-45 mmHg. The aortic root and ascending aorta are upper limits of normal in diameter. Radiology Findings: 02/14/17 CT HEAD WO IV CONTRAST IMPRESSION: No acute intracranial pathology. Mild small vessel ischemic change. 02/14/17 XRY-PORTABLE CHEST XRAY IMPRESSION: The cardiac silhouette is mildly enlarged with vascular congestion. No interstitial edema. Minimal patchy opacity at the left base with a trace pleural effusion is nonspecific for atelectasis, secretions/aspiration or early infection. Assessment/Plan Assessment: A: History obtained from ER records. Mr. Hong is a 82-year-old male with past medical history of COPD, chronic back pain, hypertension, gout who was brought in the ED today for altered mental status. According to his patient commonly overdoes pain meds for back pain and he looked lethargic and had a slow respiratory rate. called EMS, on arrival patient was given Narcan with improvement of his mentation. P: 1. Acute hypoxic respiratory failure * Continue pulse oximetry monitoring (ABG 7./64/25 on admission) * Pulmonolgy consulted * Continue BiPAP * Taper oxygen * Taper steroids * Will follow outpt with pulm if he leaves today 2. Possible Aspiration PNA CXR showed mild patchy opacity in the left base with trace pleural effusion? Aspiration/atelectasis. Enlarged large cardiac silhouette with vascular congestion * Continue unasyn IV * PT consulted, swallow eval negative 3. Opiate overdose * Urine toxicology negative SID (CR 1.3, baseline unknown) * Continue to monitor CR DVT prophylaxis- SC Heparin FULL CODE Problem List: 1. Opiate overdose 2. Hypercapnic respiratory failure 3. Renal insufficiency Pain Ratin Pain Location: N/A Pain Goal: Remain pain free Pain Plan: N/A Tomorrow's Labs & Rationales: ABG to monitor hypoxia CBC to monitor anemia Discharge Plan Discharge Disposition: home Stable for Discharge? Yes Anticipated Discharge (Day): today TEJAS COLUNGA 02/15/17 1202: Attending MD Review Statement Attending Statement Attending MD Statement: examined this patient, discuss w/resident/PA/DOOR TO DOOR FUNDRAISING COLLECTOR, agreed w/resident/PA/DOOR TO DOOR FUNDRAISING COLLECTOR, discussed with family, reviewed EMR data (avail), discussed with nursing, discussed with case mgmt, reviewed images, amended to note Attending Assessment/Plan: A/P; 82 yo M with pmh sig for COPD, chronic back pain, hypertension, gout is admitted with acute hypoxic and hypercarbic respiratory failure possibly narcotic overdose as urine tox did show some opiates. Patient is admitted to telemetry for continuous pulse ox monitoring. pulmonology consulted, TRCs, oxygen supplementation, change i/v to PO abx. steroid taper. Patient is doing well on room air, anticipate d/c soon. f/u o/p Pcp in 3-5 days, avoid opiod use.
[2017-02-15 09:07] LABS: WHITE BLOOD CELL COUNT 6.7 /CUMM (4.8-10.8)
[2017-02-15] MEDS ORDERED: PREDNISONE10 M2 PO ×2 (11:00→11:39)
[2017-02-15] MEDS ORDERED: AUGMENTIN 875-1 EACH PO ×2 (11:00→11:39)
--- NOTE | 2017-02-15 11:03 | Patient Discharge Instructions ---
Discharge Instructions General Discharge Information You were seen/treated for: Acute hypoxic hypercarbic respiratory failure AMS/Opiate overdose Aspiration PNA Acute on CHF SID You had these procedures: None Special Instructions: Follow up with PCP within 1-2 weeks after discharge Follow up with the Ui Lead Developer within 1 week after discharge Take all home medications what your PCP recommended as usual Complete your new antibiotics and steroids. Diet Continue normal diet: Yes Activity Full Activity/No Limits: Yes Acute Coronary Syndrome Inclusion Criteria At DC or during hospital stay patient has or had the following: ACS DIAGNOSIS No Discharge Core Measures Meds if any: Prescribed or Continued at Discharge Meds if any: NOT Prescribed or Continued at Discharge Congestive Heart Failure Inclusion Criteria At DC or during hospital stay patient has or had the following: CHF DIAGNOSIS Yes Discharge Core Measures Meds if any: Prescribed or Continued at Discharge Meds if any: NOT Prescribed or Continued at Discharge Cerebrovascular accident Inclusion Criteria At DC or during hospital stay patient has or had the following: CVA/TIA Diagnosis No Discharge Core Measures Meds if any: Prescribed or Continued at Discharge Meds if any: NOT Prescribed or Continued at Discharge Venous thromboembolism Inclusion Criteria VTE Diagnosis No VTE Type NONE VTE Confirmed by (Test) NONE Discharge Core Measures - Per Current guidelines, there needs to be overlap - treatment for the first 5 days of Warfarin therapy. - If discharged on Warfarin prior to 5 days of - overlap therapy, the patient will need to be - assessed for post discharge needs including - *Post discharge parental anticoagulation - *Warfarin and/or parental anticoagulation education - *Follow up date to check INR post discharge At least 5 days overlap therapy as Inpatient No Meds if any: Prescribed or Continued at Discharge Note: Overlap Therapy is Warfarin and Anticoagulant Meds if any: NOT Prescribed or Continued at Discharge
[2017-02-15 11:18] VITALS: BP 156/74
--- NOTE | 2017-02-15 13:01 | Cons- Pulmonary ---
General Information and HPI Consulting Request Date of Consult: 02/15/17 Requested By: Dr. Roberto Reason for Consult: ?aspiration pna Source of Information: patient Exam Limitations: no limitations History of Present Illness: 82 year old man. [employer] of in past. ?COPD hx however no lap regulator no inhalers and patient is unclear on this dx. Hx of htn, gout and chronic back pain. ? aspiration in settingo of opiate use. Respiratory acidosis on abg consistent with that. improved with narcan minimal left base opacity likely atelctasis no fever or leukocytosis Is clear on wanting to leave today Allergies/Medications Allergies: Coded Allergies: No Known Allergies (02/14/17) Home Med List: Amoxicillin/Potassium Clav (Augmentin 875-125 Tablet) 875 MG-125 MG TABLET 1 TAB PO BID PNEUMONIA Take 1 tablet every 12 hours for pneumonia. Prednisone 10 MG TABLET 1 TAB PO BID BREATHING PROBLEMS Take 4 tablets on 02/16/17 Take 3 tablets on 02/17/17 Take 2 tablets on 02/18/17 Take 1 tablet on 02/19/17.. Current Medications: Current Medications Sig/Caleb Start time Last Medication Dose Route Stop Time Status Admin Acetaminophen 325 MG Q6 PRN 02/14 1230 DCD PO Acetaminophen 1,000 MG Q6P PRN 02/14 1215 DCD IV Ampicillin Sodium/ 1,500 MG Q6 02/14 1800 DCD 02/15 Sulbactam Sodium IV 0600 Sodium Chloride 100 ML Heparin Sodium 5,000 UNIT Q8 02/14 1400 DCD 02/15 (Porcine) SC 0600 Heparin Sodium 0 .STK-MED ONE 02/14 1325 DC (Porcine) .ROUTE Losartan Potassium 100 MG DAILY 02/15 1000 DCD 02/15 PO 1116 Methylprednisolone 40 MG Q8 02/14 1400 DCD 02/15 IV 0600 Methylprednisolone 0 .STK-MED ONE 02/14 1326 DC .ROUTE Sodium Chloride 1,000 ML Q20H 02/14 1245 DC 02/14 IV 02/15 0844 1301 Review of Systems Comments 18 point review of systems performed. Pertinent positive and negative findings are in the HPI, otherwise negative. Past History Travel History Traveled to [place] past 21 day No Medical History Blood Transfusion Hx: No Cardiovascular: hypertension, hyperlipidemia Respiratory: COPD Musculoskeletal: disk herniation Endocrine: diabetes CRITICAL CARE REGISTERED NURSE/Reproductive: BPH Surgical History Surgical History: non-contributory Family History Relations & Conditions If Any: Relation not specified for: *No pertinent family history Psychosocial History Where Do You Live? Home Services at Home: Oxygen Smoking Status: Former Smoker Exam & Diagnostic Data Last 24 Hrs of Vital Signs/I&O Vital Signs Date Time Temp Pulse Resp B/P B/P Pulse O2 O2 Flow FiO2 Mean Ox Delivery Rate 02/15 1118 98.2 72 18 156/74 92 Room Air 02/15 1116 72 156/74 02/15 0619 98.8 89 20 162/72 92 Room Air 02/14 2217 99.6 82 20 154/80 92 Nasal 3.0L Cannula 02/14 2149 94 Nasal 3.0L Cannula 02/14 2018 93 Nasal 3.0L Cannula 02/14 1603 92 Nasal 3.0L Cannula 02/14 1556 98.2 69 20 160/78 98 BIPAP 4.0L 02/14 1551 92 Nasal 3.0L Cannula 02/14 1500 97 02/14 1303 98.6 62 18 128/60 94 BIPAP 35% Intake & Output 02/15 1600 02/15 0800 02/15 0000 Intake Total 540 Output Total Balance 540 Intake, IV 300 Intake, Oral 240 Patient 208 lb Weight Last 48 Hrs of Labs/Dhruv: Laboratory Tests 02/15/17 0646: Anion Gap 12, Estimated GFR > 60, BUN/Creatinine Ratio 21.3, CBC w Diff NO MAN DIFF REQ, RBC 4.05 L, MCV 92.8, MCH 30.1, RDW 15.1 H, MPV 11.7 H, Gran % 87.5 H, Lymphocytes % 10.7 L, Monocytes % 1.6 L, Eosinophils % 0, Basophils % 0.2, Absolute Granulocytes 5.9, Absolute Lymphocytes 0.7 L, Absolute Monocytes 0.1 L, Absolute Eosinophils 0, Absolute Basophils 0, PUBS MCHC 32.5 L 02/14/17 2030: Urine Opiates Screen 259.00, Methadone Screen 53, Barbiturate Screen < 60, Ur Phencyclidine Scrn < 6.00, Amphetamines Screen < 100, U Benzodiazepines Scrn < 85, Urine Cocaine Screen < 50, Urine Cannabis Screen < 5.00 02/14/17 1915: Troponin I 0.02 02/14/17 1450: pH 7.33 L, pCO2 50 H, pO2 65 L, HCO3 25, ABG O2 Sat (Measured) 92.0 L, P-50 (Temp Corrected) NO, Carboxyhemoglobin 0.6 L, O2 Concentration % 35%, Temperature 98.6, Respiration Rate 20, O2 Delivery Method BIPAP, Vent Mode ST, Expiratory Pressure 26, Inspiratory Pressure 4, Phlebotomy Draw Site RIGHT RADIAL 02/14/17 1300: Troponin I 0.02 02/14/17 1247: Methadone Screen Cancelled, Barbiturate Screen Cancelled, Ur Phencyclidine Scrn Cancelled, Amphetamines Screen Cancelled, U Benzodiazepines Scrn Cancelled, Urine Cocaine Screen Cancelled, Urine Cannabis Screen Cancelled 02/14/17 1115: pH 7.28 *L, pCO2 59 H, pO2 53 L, HCO3 27, ABG O2 Sat (Measured) 85.0 L, P-50 (Temp Corrected) YES, Carboxyhemoglobin 0.3 L, O2 Concentration % 35%, Temperature 98.4, Respiration Rate 26, O2 Delivery Method BIPAP, Vent Mode ST, Expiratory Pressure 4, Inspiratory Pressure 16, Phlebotomy Draw Site RIGHT RADIAL 02/14/17 0909: Urine Opiates Screen 973.00, Methadone Screen 56, Barbiturate Screen < 60, Ur Phencyclidine Scrn < 6.00, Amphetamines Screen < 100, U Benzodiazepines Scrn < 85, Urine Cocaine Screen < 50, Urine Cannabis Screen < 5.00, Urine Color YEL, Urine Clarity CLEAR, Urine pH 5.5, Ur Specific [place] 1.020, Urine Protein NEG, Urine Ketones NEG, Urine Nitrite NEG, Urine Bilirubin NEG, Urine Urobilinogen 0.2, Ur Leukocyte Esterase NEG, Ur Microscopic EXAM NOT REQUIRED, Urine Hemoglobin NEG, Urine Glucose NEG 02/14/17 0842: Lactic Acid 1.9 02/14/17 0840: pH 7.23 *L, pCO2 64 *H, pO2 92, HCO3 25, ABG O2 Sat (Measured) 95.0 L, P-50 ( Temp Corrected) YES, Carboxyhemoglobin 0.3 L, O2 Concentration % 4L, Temperature 101.9 H, O2 Delivery Method NC, Phlebotomy Draw Site RIGHT RADIAL 02/14/17 0840: pH Cancelled, pCO2 Cancelled, pO2 Cancelled, HCO3 Cancelled, ABG O2 Sat ( Measured) Cancelled, P-50 (Temp Corrected) Cancelled, Carboxyhemoglobin Cancelled, O2 Concentration % Cancelled, Temperature Cancelled, O2 Delivery Method Cancelled, Phlebotomy Draw Site Cancelled 02/14/17 0549: Anion Gap 8, Estimated GFR 53 L, BUN/Creatinine Ratio 20.0, Glucose 113 H, Lactic Acid 2.2 H, Calcium 8.5, Total Bilirubin 0.5, AST 45, ALT 47, Alkaline Phosphatase 88, Troponin I 0.02, Off-D-Qohfxfqmgqz Pept 634 H, Total Protein 6.9, Albumin 3.9, Globulin 3.0, Albumin/Globulin Ratio 1.3, CBC w Diff NO MAN DIFF REQ, RBC 3.75 L, MCV 93.8, MCH 30.2, RDW 15.1 H, MPV 11.1 H, Gran % 65.3 , Lymphocytes % 24.8, Monocytes % 7.4, Eosinophils % 2.1, Basophils % 0.4, Absolute Granulocytes 5.8, Absolute Lymphocytes 2.2, Absolute Monocytes 0.7 H, Absolute Eosinophils 0.2, Absolute Basophils 0, PUBS MCHC 32.2 L Assessment/Plan Impression/Plan: Impression 82 year old man * respiratory acidosis secondary to pain medications, resolved * possible aspiration pneumonitis Plan -pt clear on wanting to be discharged -he prefers to follow up with his PMD -recommend CXR for resolution -abx switch to augmentin for a total of 7 days -consider pulmonary as an ouptatient/pfts, etc Consult Acknowledgment - Thank you for your consult request.
--- NOTE | 2017-02-15 13:26 | ECHOCARDIOGRAM REPORT ---
CHAO TURNER Age: 82 : 1935 Gender: M Exam Date: 02/14/2017 13:17 Exam Location: ER Ht (in): 70 Wt (lb): 250 BSA: 2.41 BP: 128 / 60 Ordering Physician: CASSANDRA STALEY, Referring Physician: CASSANDRA STALEY, Technologist: Lexi Parada RDCS Room Number: [id number] Indications: HEART FAILURE Rhythm: Sinus Technical Quality: Good FINDINGS Left Ventricle Normal size left ventricle. Moderate concentric left ventricular hypertrophy. Normal left ventricular ejection fraction visually estimated at >65 %. No obvious regional wall motion abnormalities. "pseudonormal" filling pattern of the left ventricle for age (stage 2 diastolic dysfunction). Right Ventricle The right ventricle is normal in size and function. Right Atrium The right atrium is normal in size. Left Atrium mild to moderate left atrial dilatation. The interatrial septum is intact. Mitral Valve Mild thickening/calcification of the mitral valve leaflets. Moderate mitral annular calcification. Mild mitral regurgitation. Aortic Valve Diffuse thickening of the aortic valve cusps with mildly reduced excursion. Very mild aortic stenosis is seen. Trace aortic regurgitation is seen. Tricuspid Valve The tricuspid valve is normal in structure and function. There is trace tricuspid regurgitation. Right ventricular systolic pressure estimated to be elevated at 40-45 mmHg. Pulmonic Valve Pulmonic valve not well visualized, grossly normal. Trace pulmonic regurgitation. Pericardium Normal pericardium without effusion. No pleural effusion. Great Vessels The aortic root and ascending aorta are upper limits of normal in diameter. CONCLUSIONS Moderate concentric left ventricular hypertrophy. Normal left ventricular ejection fraction visually estimated at >65 "pseudonormal" filling pattern of the left ventricle for age (stage 2 diastolic dysfunction). Mild to moderate left atrial dilatation. Mild thickening/calcification of the mitral valve leaflets. Moderate mitral annular calcification. Mild mitral regurgitation. Diffuse thickening of the aortic valve cusps with mildly reduced excursion. Very mild aortic stenosis is seen. Trace aortic regurgitation is seen. Right ventricular systolic pressure estimated to be elevated at 40-45 mmHg. The aortic root and ascending aorta are upper limits of normal in diameter. Compa Luu M.D. (Electronically Signed) Final Date: 15 February 2017 13:25 MEASUREMENTS (Male / Female) Normal Values 2D ECHO LV Diastolic Diameter PLAX 5.5 cm 4.2 - 5.9 / 3.9 - 5.3 cm LV Systolic Diameter PLAX 3.4 cm 2.1 - 4.0 cm LV Fractional Shortening PLAX 38.2 % 25 - 46 % LV Ejection Fraction 2D Teich 67.8 % IVS Diastolic Thickness 1.5 cm LVPW Diastolic Thickness 1.5 cm LV Relative Wall Thickness 0.5 LVOT Diameter 2.2 cm Aortic Root Diameter 3.6 cm LA Systolic Diameter LX 5.3 cm 3.0 - 4.0 / 2.7 - 3.8 cm LA Volume 74.0 cm 18 - 58 / 22 - 52 cm Ascending Aorta Diameter 3.5 cm DOPPLER AV Peak Velocity 216.0 cm/s AV Peak Gradient 18.7 mmHg AV Mean Velocity 138.0 cm/s AV Mean Gradient 9.0 mmHg AV Velocity Time Integral 52.7 cm LVOT Peak Velocity 103.0 cm/s LVOT Peak Gradient 4.2 mmHg LVOT Mean Velocity 73.9 cm/s LVOT Mean Gradient 2.0 mmHg LVOT Velocity Time Integral 24.8 cm LVOT Stroke Volume 94.3 cm AV Area Cont Eq vti 1.8 cm AV Area Cont Eq pk 1.8 cm MV Peak Velocity 159.0 cm/s MV Peak Gradient 10.1 mmHg MV Mean Velocity 94.9 cm/s MV Mean Gradient 4.0 mmHg Mitral E Point Velocity 161.0 cm/s Mitral A Point Velocity 110.0 cm/s Mitral E to A Ratio 1.5 MV PHT Velocity 168.0 cm/s MV Deceleration Dent 631.0 cm/s MV Pressure Half Time 79.9 ms MV Area PHT 2.8 cm MV Deceleration Time 227.0 ms TR Peak Velocity 304.0 cm/s TR Peak Gradient 37.0 mmHg Right Atrial Pressure 5.0 mmHg Pulmonary Artery Systolic Pressu 42.0 mmHg Right Ventricular Systolic Press 42.0 mmHg PV Peak Velocity 131.0 cm/s PV Peak Gradient 6.9 mmHg PV Mean Velocity 88.9 cm/s PV Mean Gradient 4.0 mmHg PV Velocity Time Integral 33.2 cm LV E' Lateral Velocity 5.9 cm/s Mitral E to LV E' Lateral Ratio 27.1 LV E' Septal Velocity 5.1 cm/s Mitral E to LV E' Septal Ratio 31.8
--- NOTE | 2017-02-15 18:03 | Discharge Summary ---
Visit Information Visit Dates Admission Date: 02/14/17 Discharge Date: 02/15/17 Hospital Course Course Attending Physician: LAMONT RODRIGUEZ MD Primary Care Physician: KIMI SULLIVAN,[place] [facility] Course: Mr. Hong is a 82yo M with a PMH of COPD, chronic back pain, hypertension, gout who was brought in the ED today for altered mental status. According to his patient commonly overdoes pain meds for back pain and he looked lethargic and had a slow respiratory rate. called EMS, on arrival patient was given Narcan with improvement of his mentation. History obtained from ER records. On arriving in the ED, the patient was awake and alert however had expiratory wheezing. He was given 1 dose of IV ceftriaxone and azithromycin, Narcan(0.4 mg and 0.8 mg) and TRC nebs. Patient has never been in the hospital before and no records are available in the computer. Vitals at admission temperature 100.6, pulse 86, respiration 14, blood pressure 160/100 Pertinent labs showed H&H of 11.3 /35.2, no white count, creatinine 1.3(baseline unknown), lactic acidosis of 2.2(improved to 1.9 with IV fluid), normal LFTs, troponin 0.02, benign UA, U tox not done AB:51 AM 7.23/64/92/25 95% BiPAP was initiated 11:31 AM REPEAT 7.28/59/53/27 85% (PT DIPPED TO MID 80'S THEN IMPROVED AGAIN) Chest x-ray: Mild patchy opacity in the left base with trace pleural effusion? Aspiration/atelectasis Enlarged large cardiac silhouette with vascular congestion Head CT negative for any acute changes Problem List: 1. Acute hypoxic hypercarbic respiratory failure likely secondary to COPD exacerbation and opiate overdose. Some evidence of pulmonary edema on chest x-ray. Was administered 1 dose of IV ceftriaxone and azithromycin, Narcan(0.4 mg and 0.8 mg) and TRC nebs. Admit patient to telemetry with BiPAP as needed to maintain oxygen saturations above 92%. He received IV salmeterol 40 q8 hours. Lasix was held due to renal function. Patient was later weaned off oxygen and he was discharged with a prednisone taper and augmetin 875 to complete 5-7 day course. 2. Aspiration pneumonia Presence of left lower lobe opacity in the chest x-ray. Patient received IV cephalexin and azithromycin in the ED. In telemetry he was started with IV Unasyn for now and cultures were sent. Lower respiratory cultures were positive for moderate wbcs, yeast and gram negative cocci. Blood cultures were negative. Swallow eval was done and patient passed. He was discharged with a prednisone taper and augmetin 875 to complete 5-7 day course. 3. Acute on chronic CHF CXR show evidence of vascular congestion on chest x-ray. No previous echocardiogram on file. 3 sets of troponin and EKG were done to rule out ACS. Trops came back negative. ECG showed AVB and LBBB. ProBNP was 634. 4. Opiate overdose Received Narcan x 2 (in field and ER) We avoided opiates and urine toxicology came back negative. 5. Acute kidney injury CR-1.3 (No baseline creatinine available) IVF were given and we monitored the CR and avoided nephrotoxic agents. 6. HTN/HLD Losartan was initially held because of SID but later resumed. Patient was resumed on his home meds after discharge. Heparin was given for DVT prophylaxis Allergies: Coded Allergies: No Known Allergies (02/14/17) Disposition Summary Disposition Principal Diagnosis: Acute hypoxic respiratory failure Additional Diagnosis: Opiate overdose Discharge Disposition: home or self care Discharge Instructions General Discharge Information Code Status: Full Code Patient's Diet: As tolerated Patient's Activity: As tolerated Follow-Up Instructions/Appts: Follow up with PCP within 1-2 weeks after discharge Follow up with the Nurses Director within 1 week after discharge Take all home medications what your PCP recommended as usual Complete your new antibiotics and steroids. Medications at Discharge Discharge Medications: Start taking the following new medications: Amoxicillin/Potassium Clav (Augmentin 875-125 Tablet) 875 MG-125 MG TABLET 1 Tablet ORAL TWICE DAILY Qty = 6 No Refills Instructions: Take 1 tablet every 12 hours for pneumonia. Prednisone (Prednisone) 10 MG TABLET 1 Tablet ORAL TWICE DAILY Qty = 10 No Refills Instructions: Take 4 tablets on 02/16/17 Take 3 tablets on 02/17/17 Take 2 tablets on 02/18/17 Take 1 tablet on 02/19/17.. Copies To: KIMI SULLIVAN,ROSE MARIE GUTIERREZ MD,PAUL
== END 2017-02-15 12:00 | DRG 917 ==
LOC: ERH 05:20 → ERHI 10:13 → 1NO 10:13 → ENRESERV 13:01 → ENTRNSPT 14:24 → CMPTRNSPT 15:20 → 1NO 15:23 → ENPENDDIS 02-15 11:14 → 1NO 02-15 12:00
PROVIDERS: Emergency Medicine; Student in an Organized Health Care Education/Training Program; ADMIT Hospitalist
DX: T40.601A Poisoning by unspecified narcotics, accidental (unintentional), initial encounter (principal); J96.02 Acute respiratory failure with hypercapnia; J69.0 Pneumonitis due to inhalation of food and vomit; J96.01 Acute respiratory failure with hypoxia; N17.9 Acute kidney failure, unspecified; I11.0 Hypertensive heart disease with heart failure; I50.9 Heart failure, unspecified; D64.9 Anemia, unspecified; E11.9 Type 2 diabetes mellitus without complications; E87.2 Acidosis; J44.1 Chronic obstructive pulmonary disease with (acute) exacerbation; M54.9 Dorsalgia, unspecified; G89.29 Other chronic pain; N40.0 Benign prostatic hyperplasia without lower urinary tract symptoms; I44.7 Left bundle-branch block, unspecified; I44.30 Unspecified atrioventricular block; E78.5 Hyperlipidemia, unspecified; R01.1 Cardiac murmur, unspecified
CPT/HCPCS: 1NP; 36415; 80307; 81003; 82436; 87040; 87070; 87071; 93005; 93010; 93306; J0131; J0456; J0696; J1644; J2310; J2920; J3490; J7040